=== PATIENT | male | born 1930 | race Caucasian/White ===

== ENCOUNTER 2017-02-23 23:36 | Inpatient (IN) | payer MEDICARE, BC ==
[2017-02-24 00:07] LABS: APPEARANCE CLOUDY (CLEAR); BILIRUBIN NEGATIVE (NEGATIVE); COLOR BROWN (YELLOW); GLUCOSE NEGATIVE (NEGATIVE); KETONE NEGATIVE (NEGATIVE); NITRITE POSITIVE (NEGATIVE); PROTEIN 3+ mg/dL (NEGATIVE); UROBILINOGEN NORMAL (NORMAL)
[2017-02-24 00:09] LABS: BACTERIA MANY /hpf (NONE SEEN); EPITHELIAL CELLS 0-5 /hpf (0-5); RED CELLS - URINE >50 /hpf (0-5)
[2017-02-24 00:36] LABS: BASOPHILS 0.1 % (0-2); EOSINOPHILS 0.2 % (0-7); HEMATOCRIT 40.9 % (42.0-54.0); IMMATURE GRANULOCYTES 0.4 % (0-5); LYMPHOCYTES 7.4 % (15-50); MCH 32.6 pg (26.0-34.0); MCHC 34.2 g/dL (31.0-37.0); MCV 95.1 fL (80.0-100.0); MEAN PLATELET VOLUME 10.3 fL (7.4-10.4); MONOCYTES 11.5 % (2-11); NEUTROPHILS 80.4 % (40-80); PLATELET COUNT 206 10x3/uL (130-400); RDW 12.7 % (11.5-14.5); WBC 16.3 10x3/uL (4.8-10.8)
[2017-02-24 00:52] LABS: ANION GAP 11.5 mmol/L (8-16); BILIRUBIN - TOTAL 0.52 mg/dL (0.2-1.3); CALCIUM 8.9 mg/dL (8.5-10.1); CARBON DIOXIDE 28.6 mmol/L (21.0-32.0); CREATININE - SERUM 1.3 mg/dL (0.6-1.3); POTASSIUM - SERUM 4.1 mmol/L (3.5-5.1); PROTEIN - SERUM 7.5 g/dL (6.4-8.2)
--- NOTE | 2017-02-24 01:54 | NUR ---
REPORT RECEIVED FROM CLARA SINGLETON IN ER. SHE STATES PT HAS LEVOQUIN INFUSING TO LEFT HAND. PT IS AAO, UP AD ERICK. PT BP IS 120/56 HR 77 97% RA. AT BEDSIDE, PT HAS A TEMP OF 100.6 NO TYLENOL GIVEN. WILL ASSESS WHEN PT TRANSFERS TO ROOM, 2108
[2017-02-24] MEDS ORDERED: ZOCOR20 MG PO (02:28)
[2017-02-24] MEDS ORDERED: BAYER CHEWABLE81 MG PO (02:29)
[2017-02-24] MEDS ORDERED: HYZAAR 50-12.51 TAB PO (02:29)
[2017-02-24] MEDS ORDERED: FISH OIL 1,0001 CA1 PO (02:30)
--- NOTE | 2017-02-24 02:30 | NUR ---
PT ARRIVED TO ROOM 210 VIA WHEELCHAIR WITH SPOUSE AT SIDE. PT AMBULATES WITH GAIT STEADY. LEVOQUIN INFUSING. WILL HANG NS AT 75. IV LEFT WRIST. PT IS AAO. 5'10 WT 197.4LBS BP 131/52 HR 72 TEMP 98.8 RR 18 O2 98% ROOMAIR. PT ADMISSION ASSESSMENT DONE. EMERGENCY CONTACT # IS [phone] BIPIN. PT DENIES ANY NEEDS. NO QUESTIONS OR CONCERNS. WILL CPOC
[2017-02-24] MEDS ORDERED: OCUVITE TABLET1 TA1 PO (02:31)
[2017-02-24] MEDS ORDERED: VITAMIN D31000 UNI2 PO (02:31)
[2017-02-24 04:16] VITALS: BP 131/52; BMI 28.3
--- NOTE | 2017-02-24 05:17 | NUR ---
CALL LIGHT IN REACH, WILL CONTINUE WITH PLAN OF CARE.
--- NOTE | 2017-02-24 07:51 | NUR ---
AM ROUNDS - PT IN BED AND AWAKE AT THIS TIME. AT BEDSIDE. IV TO LEFT HAND, NS AT 75CC/HR. BED AT LOWEST POSITION. CALL BARGER IN USE/REACH. SIDE RAILS UP X2. PT IS UP AD ERICK. NO NEEDS AT THIS TIME. WILL COTNINUE TO MONITOR
[2017-02-24 08:00] VITALS: BP 127/59
[2017-02-24 12:00] VITALS: BP 123/65
[2017-02-24 16:00] VITALS: BP 124/56
--- NOTE | 2017-02-24 19:05 | NUR ---
TALKING ON PHONE, DENIES ANY NEEDS OR DISCOMFORTS. IV IN L HAND WITH NS INFUSING AT 75ML/HR. BED IS LOW WITH SR UP X2. CALL LIGHT IN REACH.
[2017-02-24 20:10] VITALS: BP 127/49
--- NOTE | 2017-02-24 23:45 | NUR ---
HYDRAULIC ROCKBREAKER OPERATOR PRESENT IN ROOM TAKING VS. DENIES ANY NEEDS.
[2017-02-25 00:34] VITALS: BP 121/58
--- NOTE | 2017-02-25 03:24 | NUR ---
RESTING WITH EYES CLOSED, SNORING LIGHTLY. RR EVEN U/L. NO S/S OF DISCOMFORT. CL IN REACH.
[2017-02-25 04:32] VITALS: BP 127/52
[2017-02-25 05:52] LABS: BASOPHILS 0.1 % (0-2); EOSINOPHILS 0.2 % (0-7); HEMOGLOBIN 12.5 g/dL (13.5-17.5); IMMATURE GRANULOCYTES 0.4 % (0-5); LYMPHOCYTES 9.5 % (15-50); MCH 32.4 pg (26.0-34.0); MCHC 33.8 g/dL (31.0-37.0); MCV 95.9 fL (80.0-100.0); MEAN PLATELET VOLUME 10.5 fL (7.4-10.4); MONOCYTES 12.6 % (2-11); NEUTROPHILS 77.2 % (40-80); PLATELET COUNT 175 10x3/uL (130-400); RBC 3.86 10x6/uL (4.20-6.10); RDW 12.8 % (11.5-14.5); WBC 15.9 10x3/uL (4.8-10.8)
[2017-02-25 06:20] LABS: ANION GAP 12.7 mmol/L (8-16); CALCIUM 8.2 mg/dL (8.5-10.1); CARBON DIOXIDE 24.9 mmol/L (21.0-32.0); CREATININE - SERUM 1.1 mg/dL (0.6-1.3); POTASSIUM - SERUM 3.6 mmol/L (3.5-5.1)
--- NOTE | 2017-02-25 07:59 | NUR ---
AM ROUNDS - PT IS IN BED AND AWAKE AT THIS TIME. IV TO LEFT HAND, NS AT 75CC/HR. PT IS A&O. BED AT LOWEST POSITION. CALL BARGER IN USE/REACH. SIDE RAILS UP X2. NO NEEDS AT THIS TIME. WILL COTNINUE TO MONITOR
[2017-02-25 08:56] VITALS: BP 120/43
[2017-02-25 11:39] VITALS: BP 135/67
[2017-02-25 15:42] VITALS: BP 152/64
--- NOTE | 2017-02-25 19:20 | NUR ---
AMBULATING IN ROOM. ALERT/ORIENTED X 4. DENIES ANY NEEDS OR DISCOMFORTS. IV IN LA HAND INTACT WITH NS INFUSING AT 75ML/HR. ORIENTED TO CALL LIGHT FOR ANY NEEDS.
--- NOTE | 2017-02-25 20:35 | NUR ---
PATIENT C/O NOT BEING ABLE TO URINATE AND FEELING ALOT OF LOWER ABD PRESSURE. I DID A BLADDER SCAN AND IT SHOWED [address] REYES AND RECEIVED ORDER TO PLACE CHAUHAN AND ORDER FOR UROLOGIST CONSULT WITH DR TEIXEIRA.
--- NOTE | 2017-02-25 21:00 | NUR ---
INSERTED CHAUHAN CATHETER PER ORDER WITH 900 CC URINE DRAINED. PATIENT STATED HE FELT MUCH BETTER.
[2017-02-25 21:06] VITALS: BP 217/88
[2017-02-26 00:34] VITALS: BP 141/75
--- NOTE | 2017-02-26 03:06 | NUR ---
RESTING QUIETLY WITH EYES CLOSED. NO S/S OF DISCOMFORT. CHAUHAN DRAINING TO GRAVITY. CALL LIGHT IN REACH.
[2017-02-26 04:00] VITALS: BP 129/66
[2017-02-26 06:19] LABS: BASOPHILS 0.2 % (0-2); EOSINOPHILS 0.7 % (0-7); HEMATOCRIT 36.2 % (42.0-54.0); HEMOGLOBIN 12.4 g/dL (13.5-17.5); IMMATURE GRANULOCYTES 0.5 % (0-5); LYMPHOCYTES 12.9 % (15-50); MCH 32.3 pg (26.0-34.0); MCHC 34.3 g/dL (31.0-37.0); MCV 94.3 fL (80.0-100.0); MEAN PLATELET VOLUME 9.9 fL (7.4-10.4); MONOCYTES 11.3 % (2-11); NEUTROPHILS 74.4 % (40-80); PLATELET COUNT 164 10x3/uL (130-400); RBC 3.84 10x6/uL (4.20-6.10); RDW 12.6 % (11.5-14.5); WBC 12.8 10x3/uL (4.8-10.8)
[2017-02-26 06:29] LABS: ANION GAP 11.6 mmol/L (8-16); CALCIUM 8.4 mg/dL (8.5-10.1); CARBON DIOXIDE 25.2 mmol/L (21.0-32.0); CREATININE - SERUM 1.1 mg/dL (0.6-1.3); POTASSIUM - SERUM 3.8 mmol/L (3.5-5.1)
--- NOTE | 2017-02-26 07:10 | NUR ---
RECEIVED REPORT. ASSUMED CARE OF PATIENT. CALL LIGHT WITHIN REACH. DENIES NEEDS. F/C PATENT. RESP EVEN AND UNLABORED. NO DISTRESS.
[2017-02-26 08:00] VITALS: BP 138/63
--- NOTE | 2017-02-26 09:49 | NUR ---
SPOKE WITH AND WITH SEE PATIENT LATER TODAY.
--- NOTE | 2017-02-26 10:58 | NUR ---
MEDICATED FOR RASH TO RIGHT ARM, NECK AND SHOULDER AT THIS TIME. IDENTIFIED DURING MORNING ASSESSMENT. MD MADE AWARE.
[2017-02-26] MEDS ORDERED: BENADRYL25 MG PO (13:08)
[2017-02-26] MEDS ORDERED: MEDROL DOSE PACK4 MG PO (13:18)
[2017-02-26] MEDS ORDERED: ANUSOL-HC 2.5%30 GM TOPICAL (13:20)
[2017-02-26] MEDS ORDERED: BACTRIM DS TABL1 TAB PO (13:44)
[2017-02-26] MEDS ORDERED: PROSCAR5 MG PO (13:51)
--- NOTE | 2017-02-26 15:22 | NUR ---
22 GAUGE IV REMOVED FROM LEFT HAND. CATHETER TIP INTACT. NO BLEEDING FROM SITE. 2X2 GAUZE APPLIED AND SECURED WITH TAPE. TOLERATED IV REMOVAL WELL. NO DISTRESS.
--- NOTE | 2017-02-26 15:45 | NUR ---
DISCHARGE INSTRUCTIONS PROVIDED. INDEPTH CATHETER CARE INSTRUCTIONS PROVIDED TO PATIENT. PATIENT STATES HE HAS HAD A CATHETER BEFORE BUT THANKED THIS FURNITURE REMOVALIST'S ASSISTANT FOR INDEPTH INSTRUCTIONS PROVIDED. PATIENT VERBALIZED UNDERSTANDING OF ALL INSTRUCTIONS PROVIDED. AT BEDSIDE DURING INSTRUCTIONS BEING PROVIDED. AT THIS TIME, LEG BAG PLACED VIA STERILE TECHNIQUE PATIENT IS BEING DISCHARGED HOME WITH CHAUHAN CATHETER DUE TO ENLARGED PROSTATE.
--- NOTE | 2017-02-26 16:15 | NUR ---
PATIENT LEFT UNIT VIA WHEELCHAIR AT THIS TIME. PATIENT DISCHARGED TO HOME WITH SPOUSE. PATIENT LEFT UNIT WITH ALL PERSONAL BELONGINGS. NO DISTRESS UPON LEAVING UNIT.
--- NOTE | 2017-02-26 16:16 | NUR ---
PRESCRIPTION CALLED OVER TO MISTY AT [facility] ON [address] AND [address] FOR MEDROL DOSE PACK.
--- NOTE | 2017-03-03 17:58 | HP ---
PATIENT: KYA HOLGUIN MEDICAL RECORD: [id number] ACCOUNT: [id number] LOCATION:[facility] D.2109 : 32 ADMISSION DATE: 02/24/17 HISTORY AND PHYSICAL EXAMINATION DATE OF ADMISSION: 02/23/2017 CHIEF COMPLAINT: Hematuria. HISTORY OF PRESENT ILLNESS: The patient is a healthy 86-year-old gentleman who presented to the Emergency Room complaining of urinary frequency. He had noticed some pain toward the end of his stream. He had also noted blood; otherwise, the patient had been fine. PAST MEDICAL HISTORY: Significant that he has had hypertension. He had a bundle branch block. He has had some BPH, hyperlipidemia and left rib fracture in the past. SOCIAL HISTORY: Occupation: The patient has worked in sales. He is educated to 2 years of college. He is , a never smoker and not a drinker. FAMILY HISTORY: Mother had diabetes mellitus. Father at age 98 years of age. ALLERGIES: ALTHEA INHIBITORS. MEDICATIONS: Include aspirin 81 mg once a day, fish oil 2 caps once a day, losartan 50/12.5 mg once a day, simvastatin 20 mg once a day. REVIEW OF SYSTEMS: CONSTITUTIONAL: He denies any headaches, seizures, or syncope. Denies change in visual or auditory acuity. PULMONARY: He denies any shortness of breath, cough, congestion, history of TB, asthma or bronchitis. CARDIOVASCULAR: No chest pain, palpitation, PND or orthopnea. GASTROINTESTINAL: No chronic nausea, vomiting, melena or hematochezia. GENITOURINARY: No urgency, frequency, or dysuria. PHYSICAL EXAMINATION: GENERAL: He is alert. He is oriented times 3. VITAL SIGNS: His temperature was 99.5, his respirations 18, his blood pressure is 144/75 and O2 sat was 99% on room air. His pain was a 3 on a 1-10 scale. HEENT: His head is normocephalic. No lesions. Ears: TMs clear. Eyes: Pupils equal, round and reactive to light. His extraocular movements are intact. His nasal cavity, oral cavity and oropharynx are clear. NECK: Supple. There is no adenopathy. HEART: Has a regular rate and rhythm. No murmurs, gallops or rubs. LUNGS: Clear. ABDOMEN: Soft. The bowel sounds are positive. No organomegaly. The patient did have some suprapubic tenderness. LABORATORY DATA: He had a white count elevated at 16.3, hemoglobin 14, hematocrit 40.9 and his platelets were 206. Sodium is 138, potassium 4.1. Chloride is 102. CO2 was 28.6. BUN was 27 and creatinine 1.3. Glucose 110. Urinalysis showed 3+ protein. He had positive nitrites, many bacteria, 5-10 HISTORY AND PHYSICAL [id number] EZIO,KYA wbc's with greater than 50 rbc's. ASSESSMENT: Leukocytosis, hematuria, urinary tract infection, history of hypertension. PLAN: The patient is admitted. He will be placed on Levaquin 500 mg IV q.24 hours, IV hydration. We will continue to follow his cultures as well as hematuria. TRANSINT:[id number] Voice Confirmation ID: [id number] DOCUMENT ID: [id number] CESAR DIAZ MD at 1758 CC: [id number] DICTATION DATE: 02/24/17708 HYDROGRAPHIC SURVEYOR: 02/24/17 0744 DIS IN 02/26/17 [facility] [address] [place] [address]
== END 2017-02-26 16:15 | disposition home or self-care (01) | DRG 699 ==
LOC: D.ER 23:36 → D.M2 02-24 01:41
PROVIDERS: Emergency Medicine; Family Medicine; ADMIT Family Medicine
PROC: 0T9B70Z Drainage of Bladder with Drainage Device, Via Natural or Artificial Opening (ICD-10-PCS; principal; 2017-02-25)
DX: N32.89 Other specified disorders of bladder (principal); N39.0 Urinary tract infection, site not specified; N40.1 Benign prostatic hyperplasia with lower urinary tract symptoms; N13.8 Other obstructive and reflux uropathy; R33.8 Other retention of urine; R39.12 Poor urinary stream; E78.5 Hyperlipidemia, unspecified; I10 Essential (primary) hypertension